=== PATIENT | male | born 1980 | race Caucasian/White ===

== ENCOUNTER 2018-01-01 18:46 | Emergency (ER) | payer OTHER ==
[~2018-01-01] VITALS: Ht 182.9 cm; Wt 122.5 kg
[~2018-01-01 18:46] MED LIST: ACYCLOVIR 200200 MG PO; ATENOLOL; ATENOLOL 25 MG25 M1 PG; BACTRIM DS TAB1 EACH; CIPRO500 MG PO; CLARITIN; CLARITIN5 MG; DOXYCYCLINE 10100 M1 PO; DYRENIUM100 MG PO; FARXIGA10 MG PO; GLUCOPHAGE500 MG PO; JANUMET XR 1001 EACH PO; MEDROL DOSPAK21 TAB PO; METFORMIN; NORCO 5-325 TA1 EACH PO; ONDANSETRON HCL4 M2 PO; OSELB75 PO; PHENERGAN25 M2 RE; PRILOSEC 20 MG20 MG PO; PRINIVIL20 M1 PO; SIMVASTATIN5 MG PO; ULTRAM 50MG TAB50 MG PO; ZOFRAN 4 MG ORAL4 M1 DIS; ZOFRAN ODT4 MG PO; ZPAK PO
[2018-01-01] MEDS ORDERED: CINNAMON500 MG (19:06)
[2018-01-01 19:24] LABS: URINE BILIRUBIN NEGATIVE (Negative); URINE BLOOD NEGATIVE (Negative); URINE CLARITY CLEAR; URINE COLOR YELLOW; URINE GLUCOSE-RANDOM 3+ (Negative); URINE KETONES TRACE (Negative); URINE LEUKOCYTES-REFLEX NEGATIVE (Negative); URINE NITRITE-REFLEX NEGATIVE (Negative); URINE PROTEIN NEGATIVE (Negative); URINE SPECIFIC GRAVITY 1.015 (1.005-1.030); URINE UROBILINOGEN 0.2 E.U./dl (0.2-1.0)
[2018-01-01 19:38] LABS: ABSOLUTE EOSINOPHILS 0.1 thou/uL (0.0-0.7); ABSOLUTE LYMPHOCYTES 2.4 thou/uL (0.8-5.3); ABSOLUTE MONOCYTES 0.6 thou/uL (0.0-1.2); BASOPHILS 0.5 %; EOSINOPHILS 1.3 %; LYMPHOCYTES 29.2 %; MCH 31.4 pg (26.0-34.0); MCHC 34.6 g/dL (28.0-37.0); MCV 90.8 fL (80.0-100.0); MONOCYTES 7.6 %; MPV 8.4 fl. (7.2-11.1); NUCLEATED RBCS 0 /100WBC; PLATELET COUNT* 353 thou/uL (150-400); POLYS 61.4 %; RBC 5.73 mil/uL (4.50-6.00); RDW-CV 13.1 % (10.5-14.5); WBC 8.1 thou/uL (4.0-11.0)
[2018-01-01 19:49] LABS: CALCIUM 9.2 mg/dL (8.5-10.1); POTASSIUM 3.8 mmol/L (3.5-5.1)
[2018-01-01 20:18] LABS: TOTAL BILIRUBIN 0.4 mg/dL (<0.1-1.0); TOTAL PROTEIN 7.7 g/dL (6.4-8.2)
[2018-01-01] MEDS ORDERED: ONDANSETRON HCL4 M2 PO (21:20)
[2018-01-01 21:53] VITALS: BP 131/68
== END 2018-01-01 21:55 | disposition home or self-care (01) ==
LOC: M.ERS 18:46
PROVIDERS: Nurse Practitioner Family
DX: R10.84 Generalized abdominal pain (principal); R11.0 Nausea; I10 Essential (primary) hypertension; E11.9 Type 2 diabetes mellitus without complications; E78.5 Hyperlipidemia, unspecified; K21.9 Gastro-esophageal reflux disease without esophagitis; G47.30 Sleep apnea, unspecified; Z86.14 Personal history of Methicillin resistant Staphylococcus aureus infection; Z90.49 Acquired absence of other specified parts of digestive tract

== ENCOUNTER 2020-11-17 14:29 | Emergency (ER) | payer OTHER ==
[~2020-11-17] VITALS: Ht 185.4 cm; Wt 127.0 kg
[~2020-11-17 14:29] MED LIST changes: +CINNAMON500 MG
[2020-11-17 15:00] VITALS: BP 152/85
== END 2020-11-17 15:06 | disposition home or self-care (01) ==
LOC: M.ERS 14:29
DX: U07.1 COVID-19 (principal); E11.9 Type 2 diabetes mellitus without complications; E78.5 Hyperlipidemia, unspecified; I10 Essential (primary) hypertension; K21.9 Gastro-esophageal reflux disease without esophagitis; Z86.14 Personal history of Methicillin resistant Staphylococcus aureus infection; Z90.49 Acquired absence of other specified parts of digestive tract; Z79.899 Other long term (current) drug therapy

== ENCOUNTER 2020-11-19 22:06 | Inpatient (IN) | payer OTHER ==
[~2020-11-19] VITALS: Ht 185.4 cm; Wt 111.0 kg
[2020-11-19] MEDS ORDERED: AMARYL2 M1 PO (22:21)
[2020-11-19 22:22] VITALS: BP 130/79
[2020-11-19 23:15] LABS: ABSOLUTE LYMPHOCYTES 0.7 thou/uL (0.8-5.3); ABSOLUTE MONOCYTES 0.3 thou/uL (0.0-1.2); ABSOLUTE NEUTROPHILS 2.8 thou/uL (1.6-8.1); BASOPHILS 0.3 %; HEMATOCRIT 44.1 % (42.0-52.0); HEMOGLOBIN 15.3 gm/dL (14.0-18.0); LYMPHOCYTES 18.8 %; MCHC 34.8 g/dL (28.0-37.0); MCV 89.2 fL (80.0-100.0); MONOCYTES 8.7 %; NUCLEATED RBCS 0 /100WBC; PLATELET COUNT* 196 thou/uL (150-400); POLYS 72.2 %; RBC 4.94 mil/uL (4.50-6.00); RDW-CV 12.9 % (10.5-14.5); WBC 3.9 thou/uL (4.0-11.0)
[2020-11-19 23:22] LABS: PROTIME 10.4 Seconds (9.20-11.50)
[2020-11-19 23:25] LABS: CALCIUM 8.2 mg/dL (8.5-10.1); CREATININE 0.9 mg/dL (0.6-1.3); POTASSIUM 3.1 mmol/L (3.5-5.1)
[2020-11-19 23:36] LABS: ALBUMIN 3.4 g/dL (3.4-5.0); TOTAL BILIRUBIN 0.3 mg/dL (<0.1-1.0); TOTAL PROTEIN 7.3 g/dL (6.4-8.2)
[2020-11-20] VITALS (21 sets, daily range): BP systolic 83–150; BP diastolic 35–88
--- NOTE | 2020-11-20 09:58 | EKG ---
[place] [address] ELECTROCARDIOGRAM REPORT Name: LAKESHIA BEAR Room: [address] ADM IN ..#: [id number] Admission: 11/20/20 Attend Phys: Serafin aBldwin Discharge: Date of : 76 Date of Service: 11/19/202217 Report #: [id number] THIS REPORT FOR: //name// [facility] ED Test Date: 2020-11-19 Test Time: 22:18:35 Pat Name: LAKESHIA BEAR Department: Room: [facility] Gender: M Door And Arrival Attendant: : 1980 Requested By: Marina Morrell Order Number: [id number] MD: Keny Braun Measurements Intervals Starr Rate: 108 P: 84 AL: 152 QRS: 68 QRSD: 97 T: -7 QT: 352 QTc: 472 Interpretive Statements Sinus tachycardia nonspecific t wave changes Compared to ECG 02/18/2017 02:18:43 Sinus rhythm no longer present Electronically Signed On 11-20-2020 9:58:19 CDT by Keny Braun [email or web address] <ELECTRONICALLY SIGNED> By: Keny Braun MD, [facility] 11/20/20 0958 2218 2218 Keny Braun MD, [facility] /EPI
[2020-11-21] VITALS (7 sets, daily range): BP systolic 90–139; BP diastolic 49–77
[2020-11-21 02:06] LABS: GLYCOHEMOGLOBIN (HGB A1C) 7.7 % (4.8-5.6)
[2020-11-21 05:57] LABS: BE -1.8 mmol/L (-2 to +3); PCO2 32.8 mmHg (35.0-45.0); pH 7.435 (7.340-7.450)
[2020-11-21 06:00] LABS: HEMATOCRIT 43.6 % (42.0-52.0); HEMOGLOBIN 15.1 gm/dL (14.0-18.0); MCH 31.1 pg (26.0-34.0); MCHC 34.5 g/dL (28.0-37.0); MPV 8.4 fl. (7.2-11.1); RBC 4.85 mil/uL (4.50-6.00); RDW-CV 13.1 % (10.5-14.5); WBC 8.3 thou/uL (4.0-11.0)
[2020-11-21 06:02] LABS: CALCIUM 8.3 mg/dL (8.5-10.1); CREATININE 1.1 mg/dL (0.6-1.3); POTASSIUM 4.3 mmol/L (3.5-5.1)
[2020-11-21 06:06] LABS: PO2 48.2 mmHg (75.0-100.0)
[2020-11-21 15:43] LABS: CALCIUM 7.9 mg/dL (8.5-10.1); MAGNESIUM 2.6 mg/dL (1.8-2.4); POTASSIUM 4.3 mmol/L (3.5-5.1)
[2020-11-22] VITALS (7 sets, daily range): BP systolic 99–132; BP diastolic 50–74
[2020-11-22 07:49] LABS: ABSOLUTE LYMPHOCYTES 0.6 thou/uL (0.8-5.3); ABSOLUTE MONOCYTES 0.6 thou/uL (0.0-1.2); ABSOLUTE NEUTROPHILS 4.5 thou/uL (1.6-8.1); BASOPHILS 0.2 %; HEMOGLOBIN 15.3 gm/dL (14.0-18.0); LYMPHOCYTES 10.6 %; MCV 91.3 fL (80.0-100.0); MONOCYTES 10.7 %; NUCLEATED RBCS 0 /100WBC; PLATELET COUNT* 302 thou/uL (150-400); POLYS 78.5 %; RBC 4.93 mil/uL (4.50-6.00); RDW-CV 12.9 % (10.5-14.5); WBC 5.7 thou/uL (4.0-11.0)
[2020-11-22 07:57] LABS: ALBUMIN 2.9 g/dL (3.4-5.0); CREATININE 0.9 mg/dL (0.6-1.3); MAGNESIUM 2.9 mg/dL (1.8-2.4); POTASSIUM 4.1 mmol/L (3.5-5.1); TOTAL BILIRUBIN 0.3 mg/dL (<0.1-1.0); TOTAL PROTEIN 7.2 g/dL (6.4-8.2)
[2020-11-23 04:08] LABS: ABSOLUTE LYMPHOCYTES 0.7 thou/uL (0.8-5.3); ABSOLUTE MONOCYTES 0.6 thou/uL (0.0-1.2); ABSOLUTE NEUTROPHILS 6.1 thou/uL (1.6-8.1); BASOPHILS 0.1 %; HEMATOCRIT 44.3 % (42.0-52.0); HEMOGLOBIN 15.5 gm/dL (14.0-18.0); LYMPHOCYTES 9.3 %; MCH 31.2 pg (26.0-34.0); MCHC 34.9 g/dL (28.0-37.0); MCV 89.5 fL (80.0-100.0); MPV 8.3 fl. (7.2-11.1); NUCLEATED RBCS 0 /100WBC; PLATELET COUNT* 314 thou/uL (150-400); POLYS 82.6 %; RBC 4.95 mil/uL (4.50-6.00); RDW-CV 12.8 % (10.5-14.5); WBC 7.4 thou/uL (4.0-11.0)
[2020-11-23 04:26] LABS: ALBUMIN 2.7 g/dL (3.4-5.0); CALCIUM 8.2 mg/dL (8.5-10.1); CREATININE 0.9 mg/dL (0.6-1.3); MAGNESIUM 2.8 mg/dL (1.8-2.4); POTASSIUM 4.3 mmol/L (3.5-5.1); TOTAL BILIRUBIN 0.3 mg/dL (<0.1-1.0); TOTAL PROTEIN 6.6 g/dL (6.4-8.2)
[2020-11-23 04:58] VITALS: BP 114/73
[2020-11-23 08:06] VITALS: BP 142/67
[2020-11-23 11:47] VITALS: BP 128/63
--- NOTE | 2020-11-23 15:22 | CON ---
[address] [address] CONSULTATION Name: LAKESHIA BEAR Room: [address] IN .R.#: [id number] Admission: 11/20/20 Attend Phys: Venita Oliver Discharge: Date of : 76 Report #: [id number] THIS REPORT FOR: cc: Corby Mathur MD, Anthony MD Pervez,Bandar GRAY ~ DOC #: [id number] Bandar Duque MD DATE OF CONSULTATION: 11/21/2020 Consult has been requested by Dr. Shaquille Linares. INDICATION FOR CONSULTATION: Acute hypoxemic respiratory failure secondary to COVID-19. HISTORY OF PRESENT ILLNESS: A 40-year-old gentleman. He is a lifetime nonsmoker. The patient, however, does have a history of obesity with a body mass index of 37 and he does state that he uses a positive airway pressure device, likely a CPAP while asleep. 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 The patient received the Adán and Adán COVID-19 vaccine on Monday of last week; however, he has also had exposure to a person with COVID-19 recently. The patient now developed increasing shortness of breath as well as generalized weakness. He reports having had a high-grade fever, body aches as well he has been coughing, not much sputum though, some pressure on the chest, but no chest pain. The patient has been monitoring his O2 saturation at home and noticed that it was dipping into the upper 80s, which is the reason that he came to the emergency room yesterday. Yesterday on initial presentation, the patient was maintaining O2 saturation with 4 liters nasal cannula in place. This was gradually increased yesterday by early this morning, the patient was on a heated high-flow nasal cannula with 100% FiO2 and high flow oxygen and O2 saturation was still in the upper 80s. The patient also is having increasing respiratory distress and work of breathing. I was therefore called and I requested that the patient be placed on BiPAP. The patient currently has stabilized on BiPAP; however, continues to need 100% FiO2 with an EPAP of 10 with an average volume assured pressure support on the BiPAP to maintain O2 saturation. He remains alert, awake and oriented. Communication with the patient, however, is limited due to the fact that he has significant shortness of breath and also has a BiPAP in place. The patient reports having had chills as well. He again did have a high-grade fever up to 38.5 overnight. There is also increase in consolidation of his left lung on the chest x-ray this morning and on arrival, he had tested positive for COVID[place]19[place] [address] CONSULTATION Name: MARIANELALAKESHIA Andrzej Room: [address] IN [facility]#: [id number] Admission: 11/20/20 Attend Phys: Venita Oliver Discharge: Date of : 76 Report #: [id number] REVIEW OF SYSTEMS: The patient's review of systems for 12 points is negative except as mentioned above. 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 Gastroesophageal reflux disease. SOCIAL HISTORY: He is a lifetime nonsmoker. Only rare alcohol use. No known history of illegal drug use. CURRENT MEDICATIONS: List in [facility], reviewed. Home medication list, also in [facility], reviewed. ALLERGIES: No known drug allergies. FAMILY HISTORY: There is no pertinent family history; however, as above, the patient has exposure to a person known to have COVID-19 recently. PHYSICAL EXAMINATION: GENERAL: He is alert, awake and oriented; however, he is short of breath at rest, requiring 100% FIO2 with a BiPAP to maintain O2 saturation. VITAL SIGNS: Has a pulse of 90 and a blood pressure of 99/56. His O2 saturation has finally come up to 97% with maximal support on the BiPAP, but his respiratory rate still is 33. He is now afebrile with a temperature of 36.7. He did have a high-grade fever overnight and this morning earlier as above. Body mass index is 37. HEENT: Head is normocephalic and atraumatic. Pupils are equal and reactive. There is no throat erythema. He has a narrow airway. Throat examination is limited due to BiPAP in place. NECK: Does not show raised JVP, asymmetry, mass or lymph nodes. CHEST: Symmetrical expansion on inspection and palpation. On auscultation, breath sounds are bilaterally equal. I do not hear any added sounds. HEART: Regular. There is no murmur. ABDOMEN: Soft and nontender. EXTREMITIES: Lower extremities show minimal edema only. There is no calf tenderness. SKIN: Dry and intact. NEUROLOGIC: Moves all extremities bilaterally equally and spontaneously with no focal deficit identified. LABORATORY DATA: The patient's chest x-ray performed yesterday shows bilateral interstitial infiltrates consistent with COVID-19. Chest x-ray this morning [address] [place] [address] CONSULTATION Name: LAKESHIA BEAR Room: [address] [place] [facility]#: [id number] Admission: 11/20/20 Attend Phys: Venita Oliver Discharge: Date of : 76 Report #: [id number] showed increasing consolidation of the left lung. The patient's lab work is in [facility] and this is reviewed. The patient's arterial blood gas performed this morning is consistent with acute hypoxemic respiratory failure. D-dimer is mildly elevated to 0.83. ASSESSMENT AND PLAN: 1. Acute hypoxemic respiratory failure secondary to COVID-19. The patient has stabilized on BiPAP. For now, we will watch him closely on BiPAP. In case he improves, we will place him on a heated high-flow nasal cannula while awake. He does need BiPAP to be continued while asleep. We will attempt prone positioning if possible, if not, then we will at least have him sit up in bed or be on his sides, avoid lying supine. In case the patient's condition deteriorates further, I will have a very low threshold of endotracheally intubating him. 2. COVID-19. We will continue with corticosteroids. Note that the current guidelines allow an increase in dexamethasone dosage up to 10 mg b.i.d. in severely hypoxemic patients and current guidelines state that this increase in dose beyond the standard dose of 6 mg. It is unknown as to whether there is increase in dose beyond the standard dose of 6 mg is beneficial or harmful. For now, I will increase his dexamethasone dose to 8 mg b.i.d. as dexamethasone has a slower onset of action. He was in respiratory distress this morning. I did give him a dose of Solu-Medrol as well. He is already on remdesivir. We will continue with remdesivir. I did go ahead and give him a dose of Actemra as well. There will be significant risks and potential benefit for use of convalescent plasma as well at this time. Note that he did receive the Adán and Adán vaccine recently, which will increase the risk of thromboembolism in case convalescent plasma is administered. I do not feel strongly either way regarding this at this time, but I did not order convalescent plasma at this time. 3. Pulmonary infiltrates. Primarily these appear to be secondary to COVID-19. Considering the severity of the patient's respiratory failure, I recommend that we treat him with broad-spectrum antibiotics as well. We will order ceftriaxone as well as doxycycline. Note that the patient has a previous history of methicillin-resistant Staphylococcus aureus colonization. We will do some cultures and serologies again now as well. Doxycycline does provide some methicillin-resistant Staphylococcus aureus coverage; however, if the patient's condition fails to improve or declines, additional methicillin-resistant Staphylococcus aureus coverage may be considered. 4. Mild fluid overload/history of hypertension. The patient's blood pressure is now on the lower side at 99/56. He may in fact benefit from more diuresis as well. He did receive a dose of Lasix this morning. Therefore, for now, I discontinued his lisinopril. We will follow if blood pressure is elevated again, recommend restarting possibly in a lower dose. We will repeat labs this evening. We will also follow the trend on blood pressure and then decide as to whether or not to give him more Lasix later in the day today. [address] [address] CONSULTATION Name: LAKESHIA BEAR Room: [address] [place] [facility]#: [id number] Admission: 11/20/20 Attend Phys: Venita Oliver Discharge: Date of : 76 Report #: [id number] 5. Mild elevation in the D-dimer/evaluation for thromboembolic phenomena/deep venous thrombosis prophylaxis. For now, we will use intermediate dose Lovenox at 60 mg b.i.d. for deep venous thrombosis prophylaxis. We will do venous Dopplers. The patient is not stable for transport to CT for CT of chest at this time. Overall, my suspicion of pulmonary emboli also is low. 6. Diabetes, likely blood glucoses will rise with increasing dose of steroids. Discussed with Dr. Valencia. Would defer a followup of insulin doses to the primary service. 7. Gastrointestinal prophylaxis, on Protonix. 8. C. difficile prophylaxis, Florastor. The patient is critically ill at this time. Total time spent providing critical care to this patient today exceeds 49 minutes. MD NELDA Ramirez/FILIPE <ELECTRONICALLY SIGNED> By: Bandar Duque MD 11/23/20 1522 1217 [id number] Duque MD /nt
[2020-11-23 16:25] VITALS: BP 126/63
[2020-11-23 20:30] VITALS: BP 128/66; BP 130/62; BP 132/74
[2020-11-23 23:25] VITALS: BP 132/72
[2020-11-24 03:45] VITALS: BP 111/70
[2020-11-24 05:52] LABS: ABSOLUTE LYMPHOCYTES 0.6 thou/uL (0.8-5.3); ABSOLUTE MONOCYTES 0.5 thou/uL (0.0-1.2); ABSOLUTE NEUTROPHILS 6.9 thou/uL (1.6-8.1); EOSINOPHILS 0.3 %; HEMATOCRIT 46.3 % (42.0-52.0); MCH 31.1 pg (26.0-34.0); MCHC 34.5 g/dL (28.0-37.0); MPV 8.4 fl. (7.2-11.1); NUCLEATED RBCS 0 /100WBC; PLATELET COUNT* 330 thou/uL (150-400); POLYS 86.7 %; RBC 5.15 mil/uL (4.50-6.00); RDW-CV 12.9 % (10.5-14.5)
[2020-11-24 06:00] LABS: CALCIUM 8.3 mg/dL (8.5-10.1); MAGNESIUM 2.6 mg/dL (1.8-2.4); POTASSIUM 4.2 mmol/L (3.5-5.1)
[2020-11-24 08:00] VITALS: BP 144/81
[2020-11-24 12:00] VITALS: BP 128/79
[2020-11-24 16:29] VITALS: BP 115/71
[2020-11-24 17:28] VITALS: BP 123/75; BP 124/78
[2020-11-24 19:30] VITALS: BP 120/69
[2020-11-25] VITALS (7 sets, daily range): BP systolic 118–138; BP diastolic 55–80
[2020-11-25 07:44] LABS: HEMATOCRIT 49.5 % (42.0-52.0); MCH 31.3 pg (26.0-34.0); MCHC 34.4 g/dL (28.0-37.0); MCV 91.1 fL (80.0-100.0); MPV 9.2 fl. (7.2-11.1); RBC 5.44 mil/uL (4.50-6.00); RDW-CV 12.6 % (10.5-14.5); WBC 10.5 thou/uL (4.0-11.0)
[2020-11-25 07:50] LABS: CALCIUM 8.6 mg/dL (8.5-10.1); CREATININE 0.7 mg/dL (0.6-1.3); POTASSIUM 4.2 mmol/L (3.5-5.1)
[2020-11-25 17:12] LABS: CALCIUM 8.7 mg/dL (8.5-10.1); CREATININE 0.9 mg/dL (0.6-1.3); POTASSIUM 4.3 mmol/L (3.5-5.1)
[2020-11-26 04:15] VITALS: BP 130/79
[2020-11-26 06:15] LABS: HEMATOCRIT 49.2 % (42.0-52.0); MCH 30.9 pg (26.0-34.0); MCHC 34.5 g/dL (28.0-37.0); MCV 89.6 fL (80.0-100.0); MPV 8.5 fl. (7.2-11.1); NUCLEATED RBCS 0 /100WBC; PLATELET COUNT* 375 thou/uL (150-400); RDW-CV 12.5 % (10.5-14.5); WBC 11.3 thou/uL (4.0-11.0)
[2020-11-26 06:26] LABS: ALBUMIN 3.1 g/dL (3.4-5.0); CALCIUM 8.3 mg/dL (8.5-10.1); CREATININE 0.7 mg/dL (0.6-1.3); MAGNESIUM 2.2 mg/dL (1.8-2.4); POTASSIUM 4.2 mmol/L (3.5-5.1); TOTAL BILIRUBIN 0.9 mg/dL (<0.1-1.0); TOTAL PROTEIN 6.8 g/dL (6.4-8.2)
[2020-11-26 06:42] LABS: ABSOLUTE LYMPHOCYTES 0.9 thou/uL (0.8-5.3); ABSOLUTE MONOCYTES 0.6 thou/uL (0.0-1.2); ABSOLUTE NEUTROPHILS 9.8 thou/uL (1.6-8.1); ANISOCYTOSIS 1+; PLATELET ESTIMATE ADEQUATE; POIKILOCYTOSIS 1+
[2020-11-26 08:00] VITALS: BP 116/68
[2020-11-26 12:02] VITALS: BP 110/63
[2020-11-26 15:56] LABS: CALCIUM 8.5 mg/dL (8.5-10.1); CREATININE 0.9 mg/dL (0.6-1.3); POTASSIUM 4.4 mmol/L (3.5-5.1)
[2020-11-26 16:21] VITALS: BP 102/72
[2020-11-26 20:00] VITALS: BP 108/72
[2020-11-27 00:50] VITALS: BP 110/69
[2020-11-27 04:16] VITALS: BP 117/72
[2020-11-27 07:07] LABS: ABSOLUTE LYMPHOCYTES 0.8 thou/uL (0.8-5.3); ABSOLUTE MONOCYTES 0.4 thou/uL (0.0-1.2); ABSOLUTE NEUTROPHILS 8.6 thou/uL (1.6-8.1); BASOPHILS 0.5 %; EOSINOPHILS 0.4 %; HEMATOCRIT 47.5 % (42.0-52.0); HEMOGLOBIN 16.5 gm/dL (14.0-18.0); LYMPHOCYTES 7.8 %; MCH 31.5 pg (26.0-34.0); MCHC 34.7 g/dL (28.0-37.0); MCV 90.9 fL (80.0-100.0); MONOCYTES 3.8 %; NUCLEATED RBCS 0 /100WBC; PLATELET COUNT* 338 thou/uL (150-400); POLYS 87.5 %; RBC 5.22 mil/uL (4.50-6.00); RDW-CV 12.6 % (10.5-14.5); WBC 9.8 thou/uL (4.0-11.0)
[2020-11-27 07:18] LABS: ALBUMIN 2.9 g/dL (3.4-5.0); CALCIUM 8.5 mg/dL (8.5-10.1); CREATININE 0.9 mg/dL (0.6-1.3); MAGNESIUM 2.2 mg/dL (1.8-2.4); POTASSIUM 4.6 mmol/L (3.5-5.1); TOTAL BILIRUBIN 0.7 mg/dL (<0.1-1.0); TOTAL PROTEIN 6.3 g/dL (6.4-8.2)
[2020-11-27 08:00] VITALS: BP 104/56
[2020-11-27 12:00] VITALS: BP 109/59
[2020-11-27 14:39] LABS: CREATININE 0.7 mg/dL (0.6-1.3)
[2020-11-27 14:40] LABS: POTASSIUM 3.4 mmol/L (3.5-5.1)
[2020-11-27 14:42] LABS: CALCIUM 5.9 mg/dL (8.5-10.1)
[2020-11-27 16:00] VITALS: BP 129/65
[2020-11-27 18:33] LABS: CALCIUM 8.5 mg/dL (8.5-10.1); POTASSIUM 4.5 mmol/L (3.5-5.1)
[2020-11-27 18:35] LABS: PHOSPHORUS* 3.4 mg/dL (2.5-4.9)
[2020-11-27 20:00] VITALS: BP 96/69
[2020-11-28 00:03] VITALS: BP 118/68
[2020-11-28 03:45] VITALS: BP 121/64
[2020-11-28 07:02] LABS: ABSOLUTE EOSINOPHILS 0.1 thou/uL (0.0-0.7); ABSOLUTE LYMPHOCYTES 0.7 thou/uL (0.8-5.3); ABSOLUTE MONOCYTES 0.6 thou/uL (0.0-1.2); ABSOLUTE NEUTROPHILS 8.6 thou/uL (1.6-8.1); EOSINOPHILS 0.7 %; HEMATOCRIT 46.1 % (42.0-52.0); LYMPHOCYTES 6.9 %; MCH 31.2 pg (26.0-34.0); MCHC 34.8 g/dL (28.0-37.0); MCV 89.7 fL (80.0-100.0); MONOCYTES 6.1 %; MPV 7.8 fl. (7.2-11.1); NUCLEATED RBCS 0 /100WBC; PLATELET COUNT* 368 thou/uL (150-400); POLYS 86.3 %; RBC 5.14 mil/uL (4.50-6.00); RDW-CV 12.5 % (10.5-14.5); WBC 9.9 thou/uL (4.0-11.0)
[2020-11-28 07:17] LABS: ALBUMIN 2.9 g/dL (3.4-5.0); CALCIUM 8.1 mg/dL (8.5-10.1); CREATININE 0.8 mg/dL (0.6-1.3); TOTAL BILIRUBIN 0.7 mg/dL (<0.1-1.0); TOTAL PROTEIN 6.1 g/dL (6.4-8.2)
[2020-11-28 08:00] VITALS: BP 108/66
[2020-11-28 12:00] VITALS: BP 113/65
[2020-11-28 16:00] VITALS: BP 125/52
[2020-11-28 20:00] VITALS: BP 127/50
[2020-11-29] VITALS (7 sets, daily range): BP systolic 98–125; BP diastolic 47–71
[2020-11-29 05:49] LABS: ABSOLUTE EOSINOPHILS 0.1 thou/uL (0.0-0.7); ABSOLUTE LYMPHOCYTES 0.7 thou/uL (0.8-5.3); ABSOLUTE NEUTROPHILS 8.7 thou/uL (1.6-8.1); BASOPHILS 0.1 %; EOSINOPHILS 0.7 %; HEMOGLOBIN 15.6 gm/dL (14.0-18.0); LYMPHOCYTES 6.9 %; MCH 31.6 pg (26.0-34.0); MCHC 34.8 g/dL (28.0-37.0); MCV 90.7 fL (80.0-100.0); MONOCYTES 0.5 %; MPV 8.6 fl. (7.2-11.1); NUCLEATED RBCS 0 /100WBC; POLYS 91.8 %; RBC 4.95 mil/uL (4.50-6.00); RDW-CV 12.5 % (10.5-14.5); WBC 9.5 thou/uL (4.0-11.0)
[2020-11-29 05:50] LABS: PLATELET COUNT* 288 thou/uL (150-400)
[2020-11-29 06:03] LABS: CREATININE 0.7 mg/dL (0.6-1.3); POTASSIUM 3.9 mmol/L (3.5-5.1)
[2020-11-30 03:58] VITALS: BP 101/52
[2020-11-30 05:45] LABS: ABSOLUTE EOSINOPHILS 0.1 thou/uL (0.0-0.7); ABSOLUTE LYMPHOCYTES 0.5 thou/uL (0.8-5.3); ABSOLUTE MONOCYTES 0.6 thou/uL (0.0-1.2); ABSOLUTE NEUTROPHILS 8.3 thou/uL (1.6-8.1); BASOPHILS 0.1 %; EOSINOPHILS 0.9 %; HEMATOCRIT 43.7 % (42.0-52.0); HEMOGLOBIN 15.1 gm/dL (14.0-18.0); LYMPHOCYTES 5.5 %; MCH 31.3 pg (26.0-34.0); MCHC 34.6 g/dL (28.0-37.0); MCV 90.4 fL (80.0-100.0); MONOCYTES 6.2 %; MPV 7.9 fl. (7.2-11.1); NUCLEATED RBCS 0 /100WBC; PLATELET COUNT* 284 thou/uL (150-400); POLYS 87.3 %; RBC 4.83 mil/uL (4.50-6.00); RDW-CV 12.8 % (10.5-14.5); WBC 9.5 thou/uL (4.0-11.0)
[2020-11-30 06:04] LABS: ALBUMIN 2.8 g/dL (3.4-5.0); CALCIUM 8.1 mg/dL (8.5-10.1); CREATININE 0.8 mg/dL (0.6-1.3); POTASSIUM 4.2 mmol/L (3.5-5.1); TOTAL BILIRUBIN 0.3 mg/dL (<0.1-1.0); TOTAL PROTEIN 5.8 g/dL (6.4-8.2)
[2020-11-30 07:55] VITALS: BP 101/61
[2020-11-30 17:53] VITALS: BP 103/62
[2020-12-01] VITALS (7 sets, daily range): BP systolic 110–118; BP diastolic 60–67
[2020-12-01 05:53] LABS: HEMATOCRIT 43.4 % (42.0-52.0); HEMOGLOBIN 15.1 gm/dL (14.0-18.0); MCH 31.3 pg (26.0-34.0); MCHC 34.8 g/dL (28.0-37.0); MPV 7.9 fl. (7.2-11.1); NUCLEATED RBCS 0 /100WBC; PLATELET COUNT* 288 thou/uL (150-400); RBC 4.82 mil/uL (4.50-6.00); RDW-CV 12.7 % (10.5-14.5); WBC 9.6 thou/uL (4.0-11.0)
[2020-12-01 06:12] LABS: ALBUMIN 3.2 g/dL (3.4-5.0); CALCIUM 8.1 mg/dL (8.5-10.1); CREATININE 0.7 mg/dL (0.6-1.3); MAGNESIUM 2.3 mg/dL (1.8-2.4); POTASSIUM 4.1 mmol/L (3.5-5.1); TOTAL BILIRUBIN 0.6 mg/dL (<0.1-1.0); TOTAL PROTEIN 5.8 g/dL (6.4-8.2)
[2020-12-01 07:00] LABS: ABSOLUTE LYMPHOCYTES 0.7 thou/uL (0.8-5.3); ABSOLUTE MONOCYTES 0.2 thou/uL (0.0-1.2); ABSOLUTE NEUTROPHILS 8.7 thou/uL (1.6-8.1); PLATELET ESTIMATE ADEQUATE
[2020-12-01 07:01] LABS: ANISOCYTOSIS 1+; POIKILOCYTOSIS 1+
[2020-12-02 05:21] LABS: ABSOLUTE EOSINOPHILS 0.1 thou/uL (0.0-0.7); ABSOLUTE LYMPHOCYTES 0.9 thou/uL (0.8-5.3); ABSOLUTE MONOCYTES 1.1 thou/uL (0.0-1.2); ABSOLUTE NEUTROPHILS 9.9 thou/uL (1.6-8.1); BASOPHILS 0.2 %; EOSINOPHILS 0.5 %; HEMATOCRIT 43.1 % (42.0-52.0); HEMOGLOBIN 14.7 gm/dL (14.0-18.0); LYMPHOCYTES 7.8 %; MCHC 34.2 g/dL (28.0-37.0); MCV 90.7 fL (80.0-100.0); MONOCYTES 8.9 %; MPV 7.9 fl. (7.2-11.1); NUCLEATED RBCS 0 /100WBC; PLATELET COUNT* 292 thou/uL (150-400); POLYS 82.6 %; RBC 4.75 mil/uL (4.50-6.00)
[2020-12-02 05:33] LABS: CREATININE 0.8 mg/dL (0.6-1.3); MAGNESIUM 2.3 mg/dL (1.8-2.4); POTASSIUM 4.7 mmol/L (3.5-5.1); TOTAL BILIRUBIN 0.3 mg/dL (<0.1-1.0); TOTAL PROTEIN 5.7 g/dL (6.4-8.2)
[2020-12-02 08:16] VITALS: BP 121/78
[2020-12-02 11:57] VITALS: BP 107/64
[2020-12-02 15:57] VITALS: BP 114/65
[2020-12-02 20:00] VITALS: BP 112/75
[2020-12-03 00:22] VITALS: BP 134/86
[2020-12-03 04:38] LABS: ABSOLUTE LYMPHOCYTES 1.3 thou/uL (0.8-5.3); ABSOLUTE MONOCYTES 0.9 thou/uL (0.0-1.2); ABSOLUTE NEUTROPHILS 10.7 thou/uL (1.6-8.1); BASOPHILS 0.2 %; EOSINOPHILS 0.2 %; HEMATOCRIT 43.2 % (42.0-52.0); LYMPHOCYTES 9.9 %; MCH 31.4 pg (26.0-34.0); MCHC 34.7 g/dL (28.0-37.0); MCV 90.4 fL (80.0-100.0); MONOCYTES 7.3 %; MPV 8.1 fl. (7.2-11.1); NUCLEATED RBCS 0 /100WBC; PLATELET COUNT* 322 thou/uL (150-400); POLYS 82.4 %; RBC 4.78 mil/uL (4.50-6.00)
[2020-12-03 04:55] LABS: ALBUMIN 3.1 g/dL (3.4-5.0); CALCIUM 8.3 mg/dL (8.5-10.1); CREATININE 0.7 mg/dL (0.6-1.3); POTASSIUM 4.3 mmol/L (3.5-5.1); TOTAL BILIRUBIN 0.4 mg/dL (<0.1-1.0)
[2020-12-03 07:45] VITALS: BP 122/75
[2020-12-03 12:00] VITALS: BP 107/64
[2020-12-03 16:00] VITALS: BP 110/72
[2020-12-03 20:00] VITALS: BP 114/54
[2020-12-04 04:00] VITALS: BP 115/73
[2020-12-04 04:20] LABS: ABSOLUTE LYMPHOCYTES 1.5 thou/uL (0.8-5.3); ABSOLUTE MONOCYTES 0.9 thou/uL (0.0-1.2); ABSOLUTE NEUTROPHILS 12.2 thou/uL (1.6-8.1); BASOPHILS 0.3 %; EOSINOPHILS 0.1 %; HEMATOCRIT 43.7 % (42.0-52.0); HEMOGLOBIN 14.8 gm/dL (14.0-18.0); LYMPHOCYTES 10.5 %; MCH 30.6 pg (26.0-34.0); MCHC 33.9 g/dL (28.0-37.0); MCV 90.2 fL (80.0-100.0); MONOCYTES 6.1 %; MPV 8.1 fl. (7.2-11.1); NUCLEATED RBCS 0 /100WBC; PLATELET COUNT* 289 thou/uL (150-400); RBC 4.85 mil/uL (4.50-6.00); RDW-CV 12.7 % (10.5-14.5); WBC 14.7 thou/uL (4.0-11.0)
[2020-12-04 04:36] LABS: ALBUMIN 3.1 g/dL (3.4-5.0); CALCIUM 8.3 mg/dL (8.5-10.1); CREATININE 0.8 mg/dL (0.6-1.3); MAGNESIUM 2.3 mg/dL (1.8-2.4); POTASSIUM 4.2 mmol/L (3.5-5.1); TOTAL BILIRUBIN 0.5 mg/dL (<0.1-1.0)
[2020-12-04 08:00] VITALS: BP 145/85
[2020-12-04 12:00] VITALS: BP 97/65
[2020-12-04 16:00] VITALS: BP 123/69
[2020-12-04 20:00] VITALS: BP 109/68
[2020-12-05] VITALS: BP 130/66
[2020-12-05 03:59] VITALS: BP 139/84
[2020-12-05 04:00] VITALS: BP 128/70
[2020-12-05 09:20] VITALS: BP 119/71
[2020-12-05 16:00] VITALS: BP 109/71
[2020-12-05 20:00] VITALS: BP 101/66
[2020-12-06] VITALS: BP 112/70
[2020-12-06 04:41] VITALS: BP 117/54
[2020-12-06 05:30] LABS: CALCIUM 8.6 mg/dL (8.5-10.1); CREATININE 0.8 mg/dL (0.6-1.3); POTASSIUM 4.3 mmol/L (3.5-5.1)
[2020-12-06 09:30] VITALS: BP 109/61
[2020-12-06 10:28] LABS: ABSOLUTE BASOPHILS 0.1 thou/uL (0.0-0.2); ABSOLUTE LYMPHOCYTES 1.2 thou/uL (0.8-5.3); ABSOLUTE NEUTROPHILS 11.3 thou/uL (1.6-8.1); BASOPHILS 0.7 %; EOSINOPHILS 0.1 %; HEMATOCRIT 43.4 % (42.0-52.0); HEMOGLOBIN 14.9 gm/dL (14.0-18.0); LYMPHOCYTES 8.7 %; MCH 31.4 pg (26.0-34.0); MCHC 34.3 g/dL (28.0-37.0); MCV 91.4 fL (80.0-100.0); MONOCYTES 7.5 %; MPV 8.6 fl. (7.2-11.1); NUCLEATED RBCS 0 /100WBC; PLATELET COUNT* 266 thou/uL (150-400); RBC 4.74 mil/uL (4.50-6.00); RDW-CV 12.9 % (10.5-14.5); WBC 13.6 thou/uL (4.0-11.0)
[2020-12-06 16:00] VITALS: BP 114/54
[2020-12-06 20:00] VITALS: BP 111/64
[2020-12-07 04:00] VITALS: BP 119/62
[2020-12-07 05:14] LABS: CALCIUM 8.4 mg/dL (8.5-10.1); CREATININE 0.8 mg/dL (0.6-1.3); POTASSIUM 4.6 mmol/L (3.5-5.1)
[2020-12-07 05:27] LABS: ABSOLUTE LYMPHOCYTES 1.1 thou/uL (0.8-5.3); ABSOLUTE MONOCYTES 0.7 thou/uL (0.0-1.2); ABSOLUTE NEUTROPHILS 10.8 thou/uL (1.6-8.1); BASOPHILS 0.3 %; EOSINOPHILS 0.1 %; HEMATOCRIT 40.7 % (42.0-52.0); LYMPHOCYTES 8.8 %; MCH 31.4 pg (26.0-34.0); MCHC 34.5 g/dL (28.0-37.0); MCV 91.1 fL (80.0-100.0); MONOCYTES 5.8 %; NUCLEATED RBCS 0 /100WBC; PLATELET COUNT* 246 thou/uL (150-400); RBC 4.46 mil/uL (4.50-6.00); RDW-CV 12.8 % (10.5-14.5); WBC 12.7 thou/uL (4.0-11.0)
[2020-12-07 08:00] VITALS: BP 119/68
[2020-12-07 13:23] VITALS: BP 143/80
[2020-12-07 16:00] VITALS: BP 116/80
[2020-12-07 20:00] VITALS: BP 136/66
[2020-12-08] VITALS: BP 106/63
[2020-12-08 04:59] LABS: ABSOLUTE BASOPHILS 0.1 thou/uL (0.0-0.2); ABSOLUTE LYMPHOCYTES 1.5 thou/uL (0.8-5.3); ABSOLUTE MONOCYTES 0.9 thou/uL (0.0-1.2); ABSOLUTE NEUTROPHILS 10.9 thou/uL (1.6-8.1); BASOPHILS 0.4 %; EOSINOPHILS 0.2 %; HEMATOCRIT 41.3 % (42.0-52.0); HEMOGLOBIN 14.2 gm/dL (14.0-18.0); LYMPHOCYTES 11.3 %; MCH 30.7 pg (26.0-34.0); MCHC 34.4 g/dL (28.0-37.0); MCV 89.4 fL (80.0-100.0); MPV 8.3 fl. (7.2-11.1); NUCLEATED RBCS 0 /100WBC; PLATELET COUNT* 240 thou/uL (150-400); POLYS 81.1 %; RBC 4.62 mil/uL (4.50-6.00); RDW-CV 12.9 % (10.5-14.5); WBC 13.4 thou/uL (4.0-11.0)
[2020-12-08 05:10] LABS: CALCIUM 8.5 mg/dL (8.5-10.1); CREATININE 0.8 mg/dL (0.6-1.3); MAGNESIUM 2.4 mg/dL (1.8-2.4); POTASSIUM 4.3 mmol/L (3.5-5.1)
[2020-12-08 08:00] VITALS: BP 118/71
[2020-12-08 11:05] VITALS: BP 121/77
[2020-12-08 20:00] VITALS: BP 123/73
[2020-12-09 01:19] VITALS: BP 116/80
[2020-12-09 04:22] LABS: HEMATOCRIT 40.5 % (42.0-52.0); HEMOGLOBIN 14.2 gm/dL (14.0-18.0); MCH 31.4 pg (26.0-34.0); MCV 89.8 fL (80.0-100.0); MPV 8.4 fl. (7.2-11.1); NUCLEATED RBCS 0 /100WBC; PLATELET COUNT* 213 thou/uL (150-400); RBC 4.51 mil/uL (4.50-6.00); RDW-CV 13.1 % (10.5-14.5); WBC 13.2 thou/uL (4.0-11.0)
[2020-12-09 05:28] LABS: CALCIUM 8.4 mg/dL (8.5-10.1); CREATININE 0.7 mg/dL (0.6-1.3); POTASSIUM 4.1 mmol/L (3.5-5.1)
[2020-12-09 05:41] LABS: ABSOLUTE EOSINOPHILS 0.1 thou/uL (0.0-0.7); ABSOLUTE LYMPHOCYTES 1.6 thou/uL (0.8-5.3); ABSOLUTE MONOCYTES 0.7 thou/uL (0.0-1.2); ABSOLUTE NEUTROPHILS 10.8 thou/uL (1.6-8.1); ANISOCYTOSIS 1+; PLATELET ESTIMATE ADEQUATE; POIKILOCYTOSIS 1+
[2020-12-09 08:57] VITALS: BP 123/75
[2020-12-09 17:30] VITALS: BP 113/81
[2020-12-09 19:45] VITALS: BP 124/85
[2020-12-10 07:55] LABS: HEMATOCRIT 39.7 % (42.0-52.0); HEMOGLOBIN 13.9 gm/dL (14.0-18.0); MCH 31.5 pg (26.0-34.0); MCHC 35.1 g/dL (28.0-37.0); MCV 89.9 fL (80.0-100.0); MPV 7.7 fl. (7.2-11.1); RBC 4.42 mil/uL (4.50-6.00); RDW-CV 13.1 % (10.5-14.5); WBC 12.4 thou/uL (4.0-11.0)
[2020-12-10 08:20] VITALS: BP 113/76
[2020-12-10 08:40] LABS: CALCIUM 8.2 mg/dL (8.5-10.1); CREATININE 0.6 mg/dL (0.6-1.3); POTASSIUM 3.7 mmol/L (3.5-5.1)
[2020-12-10] MEDS ORDERED: ALBUTEROL2.5 MG/0.5 INH (10:35)
[2020-12-10] MEDS ORDERED: DEXAMETHASONE 44 M1 PO (12:43)
[2020-12-10] MEDS ORDERED: LASIX 40 MG TAB40 M1 PO (12:43)
[2020-12-10] MEDS ORDERED: SPIRONOLACTONE25 MG PO (12:43)
[2020-12-10 16:00] VITALS: BP 124/85
[2020-12-10 16:31] VITALS: BP 124/85
[2020-12-10 20:23] VITALS: BP 124/85
== END 2020-12-10 18:30 | disposition home or self-care (01) | DRG 871 ==
LOC: M.ERS 22:06 → M.ICU 11-20 00:25 → M.2W 11-20 00:25 → M.TBA-ER 11-20 00:25 → M.ICU 11-20 02:40 → M.2W 11-20 18:32 → M.ORTHSURG 12-09 11:24
PROVIDERS: Emergency Medicine; Family Medicine; Internal Medicine; Internal Medicine Critical Care Medicine; ADMIT Internal Medicine; ATTEND Internal Medicine
PROC: 5A0945A Assistance with Respiratory Ventilation, 24-96 Consecutive Hours, High Flow/Velocity Cannula (ICD-10-PCS; principal; 2020-11-20)
PROC: XW033H5 Introduction of Tocilizumab into Peripheral Vein, Percutaneous Approach, New Technology Group 5 (ICD-10-PCS; principal; 2020-11-20)
PROC: XW033E5 Introduction of Remdesivir Anti-infective into Peripheral Vein, Percutaneous Approach, New Technology Group 5 (ICD-10-PCS; principal; 2020-11-20)
PROC: 5A09457 Assistance with Respiratory Ventilation, 24-96 Consecutive Hours, Continuous Positive Airway Pressure (ICD-10-PCS; 2020-11-21)
PROC: 5A0935A Assistance with Respiratory Ventilation, Less than 24 Consecutive Hours, High Flow/Velocity Cannula (ICD-10-PCS; 2020-11-22)
PROC: XW13325 Transfusion of Convalescent Plasma (Nonautologous) into Peripheral Vein, Percutaneous Approach, New Technology Group 5 (ICD-10-PCS; 2020-11-23)
PROC: 5A09357 Assistance with Respiratory Ventilation, Less than 24 Consecutive Hours, Continuous Positive Airway Pressure (ICD-10-PCS; 2020-11-23)
PROC: 5A0935A Assistance with Respiratory Ventilation, Less than 24 Consecutive Hours, High Flow/Velocity Cannula (ICD-10-PCS; 2020-11-23)
PROC: 5A09357 Assistance with Respiratory Ventilation, Less than 24 Consecutive Hours, Continuous Positive Airway Pressure (ICD-10-PCS; 2020-11-24)
PROC: 5A0935A Assistance with Respiratory Ventilation, Less than 24 Consecutive Hours, High Flow/Velocity Cannula (ICD-10-PCS; 2020-11-24)
PROC: 5A0935A Assistance with Respiratory Ventilation, Less than 24 Consecutive Hours, High Flow/Velocity Cannula (ICD-10-PCS; 2020-11-25)
PROC: 5A09357 Assistance with Respiratory Ventilation, Less than 24 Consecutive Hours, Continuous Positive Airway Pressure (ICD-10-PCS; 2020-11-25)
PROC: 02HV33Z Insertion of Infusion Device into Superior Vena Cava, Percutaneous Approach (ICD-10-PCS; 2020-11-25)
PROC: 5A09357 Assistance with Respiratory Ventilation, Less than 24 Consecutive Hours, Continuous Positive Airway Pressure (ICD-10-PCS; 2020-11-26)
PROC: 5A0935A Assistance with Respiratory Ventilation, Less than 24 Consecutive Hours, High Flow/Velocity Cannula (ICD-10-PCS; 2020-11-26)
PROC: 5A0935A Assistance with Respiratory Ventilation, Less than 24 Consecutive Hours, High Flow/Velocity Cannula (ICD-10-PCS; 2020-11-27)
PROC: 5A09357 Assistance with Respiratory Ventilation, Less than 24 Consecutive Hours, Continuous Positive Airway Pressure (ICD-10-PCS; 2020-11-27)
PROC: 5A09357 Assistance with Respiratory Ventilation, Less than 24 Consecutive Hours, Continuous Positive Airway Pressure (ICD-10-PCS; 2020-11-28)
PROC: 5A0935A Assistance with Respiratory Ventilation, Less than 24 Consecutive Hours, High Flow/Velocity Cannula (ICD-10-PCS; 2020-11-28)
PROC: 5A09357 Assistance with Respiratory Ventilation, Less than 24 Consecutive Hours, Continuous Positive Airway Pressure (ICD-10-PCS; 2020-11-29)
PROC: 5A0935A Assistance with Respiratory Ventilation, Less than 24 Consecutive Hours, High Flow/Velocity Cannula (ICD-10-PCS; 2020-11-29)
PROC: 5A09357 Assistance with Respiratory Ventilation, Less than 24 Consecutive Hours, Continuous Positive Airway Pressure (ICD-10-PCS; 2020-11-30)
PROC: 5A0935A Assistance with Respiratory Ventilation, Less than 24 Consecutive Hours, High Flow/Velocity Cannula (ICD-10-PCS; 2020-11-30)
PROC: 5A09357 Assistance with Respiratory Ventilation, Less than 24 Consecutive Hours, Continuous Positive Airway Pressure (ICD-10-PCS; 2020-12-01)
PROC: 5A0935A Assistance with Respiratory Ventilation, Less than 24 Consecutive Hours, High Flow/Velocity Cannula (ICD-10-PCS; 2020-12-01)
PROC: 5A0935A Assistance with Respiratory Ventilation, Less than 24 Consecutive Hours, High Flow/Velocity Cannula (ICD-10-PCS; 2020-12-02)
PROC: 5A09357 Assistance with Respiratory Ventilation, Less than 24 Consecutive Hours, Continuous Positive Airway Pressure (ICD-10-PCS; 2020-12-02)
PROC: 5A0935A Assistance with Respiratory Ventilation, Less than 24 Consecutive Hours, High Flow/Velocity Cannula (ICD-10-PCS; 2020-12-03)
PROC: 5A09357 Assistance with Respiratory Ventilation, Less than 24 Consecutive Hours, Continuous Positive Airway Pressure (ICD-10-PCS; 2020-12-04)
PROC: 5A0935A Assistance with Respiratory Ventilation, Less than 24 Consecutive Hours, High Flow/Velocity Cannula (ICD-10-PCS; 2020-12-04)
PROC: 5A09357 Assistance with Respiratory Ventilation, Less than 24 Consecutive Hours, Continuous Positive Airway Pressure (ICD-10-PCS; 2020-12-05)
PROC: 5A0935A Assistance with Respiratory Ventilation, Less than 24 Consecutive Hours, High Flow/Velocity Cannula (ICD-10-PCS; 2020-12-06)
PROC: 5A09357 Assistance with Respiratory Ventilation, Less than 24 Consecutive Hours, Continuous Positive Airway Pressure (ICD-10-PCS; 2020-12-06)
PROC: 5A09357 Assistance with Respiratory Ventilation, Less than 24 Consecutive Hours, Continuous Positive Airway Pressure (ICD-10-PCS; 2020-12-07)
PROC: 5A0935A Assistance with Respiratory Ventilation, Less than 24 Consecutive Hours, High Flow/Velocity Cannula (ICD-10-PCS; 2020-12-07)
PROC: 5A09357 Assistance with Respiratory Ventilation, Less than 24 Consecutive Hours, Continuous Positive Airway Pressure (ICD-10-PCS; 2020-12-08)
PROC: 5A0935A Assistance with Respiratory Ventilation, Less than 24 Consecutive Hours, High Flow/Velocity Cannula (ICD-10-PCS; 2020-12-08)
PROC: 5A0935A Assistance with Respiratory Ventilation, Less than 24 Consecutive Hours, High Flow/Velocity Cannula (ICD-10-PCS; 2020-12-09)
PROC: 5A09357 Assistance with Respiratory Ventilation, Less than 24 Consecutive Hours, Continuous Positive Airway Pressure (ICD-10-PCS; 2020-12-09)
DX: A41.89 Other specified sepsis (principal); U07.1 COVID-19; J96.01 Acute respiratory failure with hypoxia; J12.82 Pneumonia due to coronavirus disease 2019; E87.1 Hypo-osmolality and hyponatremia; I10 Essential (primary) hypertension; E11.9 Type 2 diabetes mellitus without complications; E78.5 Hyperlipidemia, unspecified; G47.33 Obstructive sleep apnea (adult) (pediatric); K21.9 Gastro-esophageal reflux disease without esophagitis; E87.6 Hypokalemia; I95.9 Hypotension, unspecified; E66.01 Morbid (severe) obesity due to excess calories; Z90.49 Acquired absence of other specified parts of digestive tract; Z86.14 Personal history of Methicillin resistant Staphylococcus aureus infection; Z68.32 Body mass index [BMI] 32.0-32.9, adult

== ENCOUNTER → 2021-03-17 | Outpatient (CLI) | payer OTHER ==
[~2021-03-17] MED LIST changes: +ALBUTEROL2.5 MG/0.5 INH; +AMARYL2 M1 PO; +DEXAMETHASONE 44 M1 PO; +LASIX 40 MG TAB40 M1 PO; +SPIRONOLACTONE25 MG PO
== END ==
LOC: M.LAB 08:41
PROVIDERS: ATTEND Anesthesiology
DX: Z01.812 Encounter for preprocedural laboratory examination (principal); Z20.822 Contact with and (suspected) exposure to COVID-19; E87.6 Hypokalemia

== ENCOUNTER → 2021-04-13 | Outpatient (CLI) | payer OTHER | LOC: M.LAB 09:40 | PROVIDERS: ATTEND Orthopaedic Surgery | DX: Z01.812 Encounter for preprocedural laboratory examination (principal); Z20.822 Contact with and (suspected) exposure to COVID-19 ==